=== PATIENT | female | born 1960 | race Caucasian/White ===

== ENCOUNTER 2024-01-31 01:18 | Emergency (ER) | payer MEDICARE, OTHER ==
[~2024-01-31] VITALS: Ht 167.6 cm; Wt 64.0 kg
[2024-01-31 02:25] VITALS: BP 137/81; TEMP 98.6; O2SAT 99
== END 2024-01-31 02:46 | disposition home or self-care (01) ==
LOC: ER 01:21
DX: S30.811A Abrasion of abdominal wall, initial encounter (principal); Z60.2 Problems related to living alone; W54.0XXA Bitten by dog, initial encounter; Y93.89 Activity, other specified; Y92.89 Other specified places as the place of occurrence of the external cause; Y99.8 Other external cause status